=== PATIENT | male | born 1950 | race Hispanic/Latino ===

== ENCOUNTER 2023-09-22 12:35 | Outpatient (CLI) | payer MEDICARE, MEDICAID, SELFPAY | END 2023-09-22 12:36 | disposition home or self-care (01) | LOC: ANHAUDIO 12:37 | PROVIDERS: PCP Physician Assistant; Visit Provider Physician Assistant | DX: H90.3 Sensorineural hearing loss, bilateral (principal) | CPT/HCPCS: 92553; 92555; 92567 ==